=== PATIENT | male | born 1965 | race Caucasian/White ===

== ENCOUNTER 2017-09-18 10:58 | Inpatient (IN) | payer BC ==
[2017-09-18] MEDS ORDERED: Zolpidem 5 MG Tab PO PRN (12:10)
[2017-09-18] MEDS ORDERED: Sodium Chloride 0.9% 10 ML Syringe FLUSH PRN (12:10)
[2017-09-18] MEDS ORDERED: Albuterol 0.083% 2.5 MG/3 ML Neb Soln NEB PRN (12:10)
[2017-09-18] MEDS ORDERED: Albuterol/Ipratropium 3.0-0.5 MG/3 ML Neb Soln NEB PRN (12:10)
[2017-09-18] MEDS ORDERED: Lactated Ringers 1,000 ML IV SCH (12:15)
[2017-09-18] MEDS ORDERED: Benzonatate 100 MG Cap PO PRN (12:24)
[2017-09-18] MEDS ORDERED: traMADol 50 MG Tab PO PRN (12:26)
--- NOTE | 2017-09-18 12:27 | PCM.HP ---
H&P History of Present Illness - General Date of Service: 09/18/17 Admit Problem/Dx: Admission Diagnosis/Problem Admission Diagnosis/Problem Pneumonia Source of Information: Provider - History of Present Illness Initial Comments - Free Text/Narative: Pleasant 52-year-old male cutting by his presented to his clinic and [facility] after having a 2 week course of intermittent right sided back pain cough and congestion. At that time influenza swabs are negative treated symptomatically outpatient. Over the course of the last couple days he's been getting worse with breathing bouts of fevers and chills, inability to keep up with oral intake due to cough congestion sputum production shortness of breath dyspnea with exertion, weakness, increased thoracic back pain on the right, intermittent lightheadedness and overall debility malaise. He was seen in the clinic outpatient agrees found to have a respiratory rate 28, and oxygen saturations on room air 88-90, pallor with otherwise normal systolic blood pressure and a pulse in the 70s to 80s. Chest x-ray and outline facility showed a dense right middle lower lobe pneumonia. Unable to perform labs in the outlying facility. He was transferred via private vehicle as a direct admit to the hospital. He denies any onset of rash, no headache vision change epistaxis sore throat swollen lymph nodes hemoptysis chest pain at rest but does get some back pain on deep inspiration palpitations near syncope falls trauma to the chest neck or back area no tinnitus or otalgia no difficulty chewing or swallowing no sudden onset of extremity swelling numbness or tingling he does have nausea but has had no vomiting, denies abdominal epigastric or flank pain denies any dysuria hematuria malodorous urine, denies diarrhea melena unusual constipation, rash or swollen joints. Otherwise a healthy male with only seasonal allergies for which he takes an oral antihistamine. 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 He is a nonsmoker, no alcohol use or drug use. He has no known exposures, has not traveled outside the [place] or any recent part of the [place] in the last 90 days. He has no history of immunocompromise. He do not receive an influenza vaccination this season. He has not received any prescribed medications or vaccinations over the last 30 days. He has not had any hospitalizations the last 90 days nor in the last year. He's been taking [id number] Tylenol intermittently as well as some cough suppressant. denies any cardiopulmonary history, such as COPD/asthma/CAD/CHF. He denies any history of clotting disorder or family history. Denies any sudden cardiac arrest and family members at an early age. Denies any gastrointestinal history versus peptic ulcer disease, IBS IVD GI bleed. Generalized Pain Score (Numeric/FACES): 4 - Related Data Allergies/Adverse Reactions: Allergies Allergy/AdvReac Type Severity Reaction Status Date / Time azithromycin [From Zithromax] Allergy Itching Verified 09/18/17 11:21 cephalexin Allergy Rash Verified 09/18/17 11:21 codeine Allergy Cannot Verified 09/18/17 11:21 Remember Home Medications: Home Meds Benzonatate [Tessalon Perle] 200 mg PO Q8H PRN 09/18/17 [History] Cetirizine [ZyrTEC] 10 mg PO DAILY 09/18/17 [History] Montelukast [Singulair] 10 mg PO BEDTIME 09/18/17 [History] Past Medical History HEENT History: Reports: Allergic Rhinitis Cardiovascular History: Reports: None Respiratory History: Reports: None Gastrointestinal History: Reports: None Genitourinary History: Reports: None Musculoskeletal History: Reports: None Neurological History: Reports: None Psychiatric History: Reports: None Endocrine/Metabolic History: Reports: None Hematologic History: Reports: None Immunologic History: Reports: None Oncologic (Cancer) History: Reports: None Dermatologic History: Reports: None - Infectious Disease History Infectious Disease History: Reports: None - Past Surgical History HEENT Surgical History: Reports: Naso-Sinus Surgery, Other (See Below) Other HEENT Surgeries/Procedures: wisdom teeth removed Musculoskeletal Surgical History: Reports: Arthroscopic Procedure, Shoulder Surgery, Other (See Below) Other Musculoskeletal Surgeries/Procedures:: spur on shoulder Social & Family History - Tobacco Use Smoking Status *Q: Never Smoker - Caffeine Use Caffeine Use: Reports: None - Recreational Drug Use Recreational Drug Use: No - Living Situation & Occupation Living situation: Reports: Occupation: Employed (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 . Has grown children. Independent of all ADLs. Drives. No disabilities. Uses no assistive device.) H&P Review of Systems - Review of Systems: Review Of Systems: ROS reveals no pertinent complaints other than HPI. Exam - Exam Exam: See Below - Vital Signs Vital Signs: Last Vital Signs Temp 98.8 F 09/18/17 11:07 Pulse 87 09/18/17 11:07 Resp 17 09/18/17 11:07 BP 123/80 09/18/17 11:07 Pulse Ox 96 09/18/17 11:07 Weight: 76.158 kg - Exam Quality Assessment: Supplemental Oxygen (2L), Other (Thin ill-appearing male lying flat on bed. He appears pale. at the bedside. Does not shown any signs of respiratory distress. Pleasant and conversant and speaking in complete sentences.) General: Alert, Oriented, Cooperative, Lethargic HEENT: Hearing Intact, Nares Patent, Normal Nasal Septum, Posterior Pharynx Clear, Pupils Equal, TMs Clear. No: Mucosa Moist & [place], Rhinitis, Scleral Icterus Neck: Supple, Trachea Midline, +2 Carotid Pulse wo Bruit, Full Range of Motion. No: Lymphadenopathy, JVD, Thyromegaly Lungs: Decreased Breath Sounds (right mid anterior and lower posterior. no rhochi or rales. minimal wheezes expiratory central anterior bronchi bilat. breathing unlabored. left slightly decreased lower lobe.) Cardiovascular: Regular Rate, Regular Rhythm, Normal S1, Normal S2, Gallop/S3, Gallop/S4. No: Rubs GI/Abdominal Exam: Normal Bowel Sounds, Soft, Non-Tender, No Organomegaly, Other (No flank tenderness, no palpable bladder distention). No: Tender (Male) Exam: No Hernia. No: Inguinal Lymphadenopathy Rectal (Males) Exam: Deferred Back Exam: Normal Inspection, Other (Scattered acne noninflamed. Back is diaphoretic and very warm to touch. No focal trauma crepitus. Equal chest wall expansion bilaterally. No retractions.). No: Paraspinal Tenderness, Vertebral Tenderness Extremities: Normal Inspection, Non-Tender, No Pedal Edema, Slow Capillary Refill. No: Jaqui's Sign Skin: Intact, Moist. No: Wound Neurological: Cranial Nerves Intact, Strength Equal Bilateral, Normal Speech, Normal Tone, Sensation Intact. No: Focal Deficit Neuro Extensive - Mental Status: Oriented x3, Normal Cognition Psychiatric: Alert, Normal Affect, Normal Mood - Patient Data Lab Results Last 24 hrs: Laboratory Tests 09/18/17 09/18/17 09/18/17 Range/Units 12:40 12:40 12:40 WBC 8.3 (4.5-12.0) X10-3/uL RBC 4.96 (4.30-5.75) x10(6)uL Hgb 14.5 (11.5-15.5) g/dL Hct 43.3 (30.0-51.3) % MCV 87.2 (80-96) fL MCH 29.2 (27.7-33.6) pg MCHC 33.5 (32.2-35.4) g/dL RDW 12.7 (11.5-15.5) % Plt Count 204 (125-369) X10(3)uL MPV 8.8 (7.4-10.4) fL Neut % (Auto) 84.0 H (46-82) % Lymph % (Auto) 7.6 L (13-37) % Hayes % (Auto) 8.4 (4-12) % Eos % (Auto) 0 L (1.0-5.0) % Baso % (Auto) 0 (0-2) % Neut # (Auto) 7.0 (1.6-8.3) # Lymph # (Auto) 0.6 (0.6-5.0) # Hayes # (Auto) 0.7 (0.0-1.3) # Eos # (Auto) 0.0 (0.0-0.8) # Baso # (Auto) 0.0 (0.0-0.2) # Sodium 135 (135-145) mmol/L Potassium 3.6 (3.5-5.3) mmol/L Chloride 100 (100-110) mmol/L Carbon Dioxide 24 (21-32) mmol/L BUN 19 H (7-18) mg/dL Creatinine 1.2 (0.70-1.30) mg/dL Est Cr Clr Drug Dosing 67.32 mL/min Estimated GFR (MDRD) > 60 (>60) BUN/Creatinine Ratio 15.8 (9-20) Glucose 140 H (80-116) mg/dL Calcium 8.4 L (8.6-10.2) mg/dL Total Bilirubin 0.3 (0.1-1.3) mg/dL AST 36 H (5-25) IU/L ALT 39 H (12-36) U/L Alkaline Phosphatase 75 (56-112) IU/L C-Reactive Protein 32.6 H* (0.5-0.9) mg/dL Total Protein 6.8 (6.0-8.0) g/dL Albumin 2.7 L (3.5-5.2) g/dL Globulin 4.1 g/dL Albumin/Globulin Ratio 0.7 Result Diagrams: 09/19/17 06:20 09/18/17 12:40 Matias Results Last 24 hrs: Microbiology 09/18/17 13:15 Influenza Type A Antigen Screen - Final Nasal, Unspecified NEGATIVE INFLUENZA A VIRUS AG Influenza Type B Antigen Screen - Final NEGATIVE INFLUENZA B VIRUS AG *Q Meaningful Use (ADM) - VTE *Q VTE Criteria *Q: - Stroke *Q Stroke Criteria *Q: - AMI *Q AMI Criteria *Q: - Problem List (1) CAP (community acquired pneumonia) SNOMED Code(s): 446853170 ICD Code: J18.9 - PNEUMONIA, UNSPECIFIED ORGANISM Status: Acute Priority : High Current Visit: Yes Qualifiers: Laterality: right Lung location: lower lobe of lung Qualified Code(s): J18.1 - Lobar pneumonia, unspecified organism (2) Respiratory distress, acute SNOMED Code(s): 590118801 ICD Code: R06.03 - ACUTE RESPIRATORY DISTRESS Status: Acute Priority: High Current Visit: Yes (3) Dehydration, moderate SNOMED Code(s): 9616300561076 ICD Code: E86.0 - DEHYDRATION Status: Acute Current Visit: Yes (4) Back pain due to inflammatory process SNOMED Code(s): 636945487 ICD Code: M54.89 - OTHER DORSALGIA Status: Acute Current Visit: Yes (5) Complaint of debility and malaise SNOMED Code(s): 781325748 ICD Code: R53.81 - OTHER MALAISE Status: Acute Current Visit: Yes (6) Seasonal allergic rhinitis due to pollen SNOMED Code(s): 48329280 ICD Code: J30.1 - ALLERGIC RHINITIS DUE TO POLLEN Status: Acute Current Visit: Yes Problem List Initiated/Reviewed/Updated: Yes Orders Last 24hrs: Active Orders 24 hr Category Date Time Status Patient Status [ADT] Routine ADT 09/18/17 12:10 Ordered Bedrest Bathroom Privileges [RC] ASDIRECTED Care 09/18/17 12:10 Ordered Communication Order [RC] ASDIRECTED Care 09/18/17 12:10 Ordered Intake and Output [RC] Q4H Care 09/18/17 12:16 Ordered Notify Provider Vital Signs [RC] ASDIRECTED Care 09/18/17 12:17 Ordered Oxygen Therapy [RC] ASDIRECTED Care 09/18/17 12:10 Ordered Oxygen Therapy [RC] PRN Care 09/18/17 12:10 Ordered Pneumonia Education [RC] DAILY Care 09/18/17 12:10 Ordered Pulse Oximetry [RC] CONTINUOUS Care 09/18/17 12:16 Ordered RT Incentive Spirometry [RC] Q2HWA Care 09/18/17 12:10 Ordered VTE/DVT Education [RC] Per Unit Routine Care 09/18/17 12:10 Ordered Vital Signs [RC] Q4H Care 09/18/17 12:10 Ordered Respiratory Care Assess and Treatment [CONS] Routine Cons 09/18/17 12:10 Ordered Regular Diet [DIET] Diet 09/18/17 Breakfast Ordered C-REACTIVE PROTEIN [CHEM] Routine Lab 09/18/17 12:10 Ordered CBC WITH AUTO DIFF [HEME] DAILY Lab 09/18/17 12:15 Ordered CBC WITH AUTO DIFF [HEME] DAILY Lab 09/19/17 12:15 Ordered CBC WITH AUTO DIFF [HEME] DAILY Lab 09/20/17 12:15 Ordered COMPREHENSIVE METABOLIC PN,CMP [CHEM] Routine Lab 09/18/17 12:10 Ordered CULTURE BLOOD [BC] Urgent Lab 09/18/17 12:12 Ordered CULTURE BLOOD [BC] Urgent Lab 09/18/17 12:12 Ordered CULTURE SPUTUM + SMEAR [RM] Urgent Lab 09/18/17 12:10 Ordered INFLUENZA A+B AG SCREEN [RM] Urgent Lab 09/18/17 12:10 Ordered Acetaminophen [Tylenol] Med 09/18/17 12:15 Ordered 1,000 mg PO Q6H Albuterol [Proventil Neb Soln] Med 09/18/17 12:10 Ordered 2.5 mg NEB Q4H PRN Albuterol/Ipratropium [DuoNeb 3.0-0.5 MG/3 ML] Med 09/18/17 12:10 Ordered 3 ml NEB Q4H PRN Benzonatate [Tessalon Perles] Med 09/18/17 12:24 Ordered 200 mg PO Q8H PRN Cetirizine [ZyrTEC] Med 09/18/17 12:30 Ordered 10 mg PO DAILY Enoxaparin [Lovenox] Med 09/18/17 12:15 Ordered 40 mg SUBCUT Q24H Ketorolac [Toradol] Med 09/18/17 12:15 Ordered 30 mg IVPUSH Q6H Lactated Ringers @ 125 MLS/HR(1000ml) Med 09/18/17 13:30 Ordered Lactated Ringers [Ringers, Lactated] 1,000 ml IV ASDIRECTED Lactated Ringers [Ringers, Lactated] 1,000 ml Med 09/18/17 12:15 Ordered IV .BOLUS Levofloxacin/Dextrose 5%-Water [Levaquin in D5W 750 MG/ Med 09/18/17 12:15 Ordered 150 ML] 750 mg Premix Bag 1 bag IV Q24H Montelukast [Singulair] Med 09/18/17 21:00 Ordered 10 mg PO BEDTIME Sodium Chloride 0.9% [Saline Flush] Med 09/18/17 12:10 Ordered 10 ml FLUSH ASDIRECTED PRN Zolpidem [Ambien] Med 09/18/17 12:10 Ordered 5 mg PO BEDTIME PRN traMADol [Ultram] Med 09/18/17 12:26 Ordered 50 mg PO Q6H PRN Blood Culture x2 Reflex Set [OM.PC] Urgent Oth 09/18/17 12:10 Ordered Give supplemental Oxygen PRN [COMM] Routine Oth 09/18/17 12:10 Ordered Peripheral IV Insertion Adult [OM.PC] Routine Oth 09/18/17 12:10 Ordered Resuscitation Status Routine Resus Stat 09/18/17 12:10 Ordered Medication Orders Acetaminophen (Tylenol) 1,000 mg PO Q6H SIN Albuterol (Proventil Neb Soln) 2.5 mg NEB Q4H PRN PRN Reason: Shortness Of Breath/wheezing Albuterol/Ipratropium (Duoneb 3.0-0.5 Mg/3 Ml) 3 ml NEB Q4H PRN PRN Reason: Shortness Of Breath/wheezing Benzonatate (Tessalon Perles) 200 mg PO Q8H PRN PRN Reason: Cough Cetirizine HCl (Zyrtec) 10 mg PO DAILY SIN Enoxaparin Sodium (Lovenox) 40 mg SUBCUT Q24H SIN Lactated Ringer's (Ringers, Lactated) 1,000 mls @ 125 mls/hr IV ASDIRECTED SIN Lactated Ringer's (Ringers, Lactated) 1,000 mls @ 999 mls/hr IV .BOLUS SIN Levofloxacin/Dextrose 750 mg/ (Premix) 150 mls @ 150 mls/hr IV Q24H SIN Ketorolac Tromethamine (Toradol) 30 mg IVPUSH Q6H [facility] Stop: 09/19/17 18:16 Montelukast Sodium (Singulair) 10 mg PO BEDTIME SIN Sodium Chloride (Saline Flush) 10 ml FLUSH ASDIRECTED PRN PRN Reason: Keep Vein Open Zolpidem Tartrate (Ambien) 5 mg PO BEDTIME PRN PRN Reason: Sleep Assessment/Plan Comment:: We are going to hydrate him fluid bolus of lactated Ringer's and then run at 125 an hour also encouraged oral fluid intake. Will get a baseline chemistry and hematology panel as well as a CRP. Repeat influenza swabs Aziz can be negative on acute presentation. Blood cultures sputum cultures ordered we'll start Levaquin IV. Good respiratory therapy cares for DuoNeb, incentive spirometry cough and deep breathing. I'll keep him on oxygen at 2 L for now to decrease the workload of the heart and lungs. Continuous O2 sats at this moment. I have him on bedrest with bathroom privileges and a regular diet as tolerated. Will schedule Tylenol and ketorolac, and intermittent tramadol when necessary for the next day due to intermittent fevers and for analgesia secondary to inflammatory pleuritis. GI DVT prophylaxis be administered as appropriate. Continue his home allergy medications. We'll do vitals every 4. Repeat chest x-ray in the morning after hydration. Strict ins and outs. Allergies taken into consideration. Anticipate 48-72 hours inpatient status pending his response the above. Total time: 60 minutes with greater than 50% spent [id number] with the patient and conducting examination, reviewing with them diagnosis, plan of care, prognosis as well as reviewing CODE STATUS in detail for which he does wish to be full code should he need respiratory intervention such as intubation or cardiac intervention such as resuscitation. This is documented in chart.
[2017-09-18] MEDS: Ketorolac 30 MG/ML SDV IVPUSH SCH ×2 (13:01→17:38)
[2017-09-18] MEDS: Levofloxacin/Dextrose 5%-Water 750 MG in Premix Bag 1 BAG IV SCH (13:02)
[2017-09-18] MEDS: Cetirizine 10 MG Tab PO SCH (13:03)
[2017-09-18] MEDS: Acetaminophen 500 MG Tab PO SCH ×2 (13:03→17:38)
[2017-09-18] MEDS: Enoxaparin 40 MG/0.4 ML Syringe SUBCUT SCH (13:57)
[2017-09-18] MEDS: Lactated Ringers 1,000 ML IV SCH ×2 (15:04→23:09)
[2017-09-18] MEDS: Montelukast 10 MG Tab PO SCH (20:09)
[2017-09-19] MEDS: Ketorolac 30 MG/ML SDV IVPUSH SCH ×4 (00:13→18:25)
[2017-09-19] MEDS: Acetaminophen 500 MG Tab PO SCH ×3 (00:14→12:46)
[2017-09-19] MEDS: Lactated Ringers 1,000 ML IV SCH ×2 (07:12→16:20)
[2017-09-19] MEDS: Cetirizine 10 MG Tab PO SCH (08:31)
--- NOTE | 2017-09-19 10:20 | CR ---
INDICATION: Pneumonia follow-up after hydration. CHEST: PA and lateral views of the chest 09/19/2017 were compared with 2017 from the clinic and revealed slightly increased consolidation in the area of infiltration in the anterior basilar segment of the right upper lobe, with minimal pleuritis suggested at the minor fissure. Findings are compatible with slightly progressive pneumonia and pleuritis in that area. No other evidence of an acute process was identified. The heart and mediastinum were unremarkable. A mild dextroconvex scoliosis of the lower thoracic spine is noted with moderate hypertrophic degenerative changes at the mid to lower thoracic spine. There may be some minimal calcification at the arch of the aorta additionally. Slightly flattened diaphragm leaves and prominent AP diameter with minimal hyperaeration suggests COPD additionally. Blunting of the right posterior sulcus is compatible with pleuritis also - small pleural effusion. This is increased compared with the previous examination. IMPRESSION: 1. Progressive pneumonia and pleuritis right upper lobe, anterior basilar segment. 2. Probable COPD. 3. Scoliosis and DJD lower thoracic spine. 4. 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 MTDD
--- NOTE | 2017-09-19 12:37 | PCM.PN ---
- General Info Date of Service: 09/19/17 Subjective Update: Sitting upright in his chair this morning. Tells me he is feeling a little bit better. Still gets dyspneic and short of breath with activities such as getting up and going to the bathroom. He no longer appears pelvic continues to appear ill. He denies any nausea headache vision change otalgia tinnitus nasal congestion sore throat difficulty swallowing globus sensation wheezing or increase back pain. He is using his incentive spirometer which does elicit a cough reflex. Pleuritic pain is controlled with scheduled Tylenol and ketorolac. He spent afebrile however again he has been getting oral analgesics and IV anti-inflammatories. This could be masking. He was able to tolerate a meal. His urine output has improved, still slightly dark and cloudy. He did receive bolus IV fluids and is continuing to get IV fluids. He has had a bowel movement. He denies any muscle cramps Reiger's or fasciculations. Is not having any palpitations or near syncopal episodes on standing. He has no flank pain or dysuria. No hematuria. No sudden joint swelling or tenderness. No sudden onset lower extremity edema calf pain or tenderness. - Review of Systems Systems Review Comment:: Pertinent positives and negatives relevant that please refer to subjective - Patient Data Vitals - Most Recent: Last Vital Signs Temp 98.3 F 09/19/17 07:41 Pulse 56 L 09/19/17 10:27 Resp 16 09/19/17 07:41 BP 135/85 09/19/17 07:41 Pulse Ox 97 09/19/17 10:27 Weight - Most Recent: 76.158 kg I&O - Last 24 Hours: Intake & Output 09/18/17 09/19/17 09/19/17 22:59 06:59 14:59 Intake Total 2757 1312 120 Output Total 1000 325 325 Balance 1757 987 -205 Lab Results Last 24 Hours: Laboratory Results - last 24 hr 09/18/17 09/18/17 09/18/17 Range/Units 12:40 12:40 12:40 WBC 8.3 (4.5-12.0) X10-3/uL RBC 4.96 (4.30-5.75) x10(6)uL Hgb 14.5 (11.5-15.5) g/dL Hct 43.3 (30.0-51.3) % MCV 87.2 (80-96) fL MCH 29.2 (27.7-33.6) pg MCHC 33.5 (32.2-35.4) g/dL RDW 12.7 (11.5-15.5) % Plt Count 204 (125-369) X10(3)uL MPV 8.8 (7.4-10.4) fL Neut % (Auto) 84.0 H (46-82) % Lymph % (Auto) 7.6 L (13-37) % P[place] % (Auto) 8.4 (4-12) % Eos % (Auto) 0 L (1.0-5.0) % Baso % (Auto) 0 (0-2) % Neut # (Auto) 7.0 (1.6-8.3) # Lymph # (Auto) 0.6 (0.6-5.0) # Pinal # (Auto) 0.7 (0.0-1.3) # Eos # (Auto) 0.0 (0.0-0.8) # Baso # (Auto) 0.0 (0.0-0.2) # Sodium 135 (135-145) mmol/L Potassium 3.6 (3.5-5.3) mmol/L Chloride 100 (100-110) mmol/L Carbon Dioxide 24 (21-32) mmol/L BUN 19 H (7-18) mg/dL Creatinine 1.2 (0.70-1.30) mg/dL Est Cr Clr Drug Dosing 67.32 mL/min Estimated GFR (MDRD) > 60 (>60) BUN/Creatinine Ratio 15.8 (9-20) Glucose 140 H (80-116) mg/dL Calcium 8.4 L (8.6-10.2) mg/dL Total Bilirubin 0.3 (0.1-1.3) mg/dL AST 36 H (5-25) IU/L ALT 39 H (12-36) U/L Alkaline Phosphatase 75 (56-112) IU/L C-Reactive Protein 32.6 H* (0.5-0.9) mg/dL Total Protein 6.8 (6.0-8.0) g/dL Albumin 2.7 L (3.5-5.2) g/dL Globulin 4.1 g/dL Albumin/Globulin Ratio 0.7 09/19/17 Range/Units 06:20 WBC 6.9 (4.5-12.0) X10-3/uL RBC 4.90 (4.30-5.75) x10(6)uL Hgb 14.3 (11.5-15.5) g/dL Hct 42.8 (30.0-51.3) % MCV 87.3 (80-96) fL MCH 29.1 (27.7-33.6) pg MCHC 33.4 (32.2-35.4) g/dL RDW 13.1 (11.5-15.5) % Plt Count 207 (125-369) X10(3)uL MPV 8.1 (7.4-10.4) fL Neut % (Auto) 78.7 (46-82) % Lymph % (Auto) 11.2 L (13-37) % P[place] % (Auto) 9.5 (4-12) % Eos % (Auto) 0 L (1.0-5.0) % Baso % (Auto) 0 (0-2) % Neut # (Auto) 5.4 (1.6-8.3) # Lymph # (Auto) 0.8 (0.6-5.0) # Pinal # (Auto) 0.7 (0.0-1.3) # Eos # (Auto) 0.0 (0.0-0.8) # Baso # (Auto) 0.0 (0.0-0.2) # Sodium (135-145) mmol/L Potassium (3.5-5.3) mmol/L Chloride (100-110) mmol/L Carbon Dioxide (21-32) mmol/L BUN (7-18) mg/dL Creatinine (0.70-1.30) mg/dL Est Cr Clr Drug Dosing mL/min Estimated GFR (MDRD) (>60) BUN/Creatinine Ratio (9-20) Glucose (80-116) mg/dL Calcium (8.6-10.2) mg/dL Total Bilirubin (0.1-1.3) mg/dL AST (5-25) IU/L ALT (12-36) U/L Alkaline Phosphatase (56-112) IU/L C-Reactive Protein (0.5-0.9) mg/dL Total Protein (6.0-8.0) g/dL Albumin (3.5-5.2) g/dL Globulin g/dL Albumin/Globulin Ratio Matias Results Last 24 Hours: Microbiology 09/18/17 13:15 Influenza Type A Antigen Screen - Final Nasal, Unspecified NEGATIVE INFLUENZA A VIRUS AG Influenza Type B Antigen Screen - Final NEGATIVE INFLUENZA B VIRUS AG Med Orders - Current: Current Medications Acetaminophen (Tylenol Extra Strength) 1,000 mg PO Q6H [facility] Last Admin: 09/19/17 06:26 Dose: 1,000 mg Albuterol (Proventil Neb Soln) 2.5 mg NEB Q4H PRN PRN Reason: Shortness Of Breath/wheezing Albuterol/Ipratropium (Duoneb 3.0-0.5 Mg/3 Ml) 3 ml NEB Q4H PRN PRN Reason: Shortness Of Breath/wheezing Benzonatate (Tessalon Perles) 200 mg PO Q8H PRN PRN Reason: Cough Cetirizine HCl (Zyrtec) 10 mg PO DAILY [facility] Last Admin: 09/19/17 08:31 Dose: 10 mg Enoxaparin Sodium (Lovenox) 40 mg SUBCUT Q24H [facility] Last Admin: 09/18/17 13:57 Dose: 40 mg Lactated Ringer's (Ringers, Lactated) 1,000 mls @ 125 mls/hr IV ASDIRECTED [facility] Last Admin: 09/19/17 07:12 Dose: 125 mls/hr Lactated Ringer's (Ringers, Lactated) 1,000 mls @ 999 mls/hr IV .BOLUS [facility] Last Admin: 09/18/17 12:55 Dose: 999 mls/hr Levofloxacin/Dextrose 750 mg/ (Premix) 150 mls @ 150 mls/hr IV Q24H [facility] Last Admin: 09/18/17 13:02 Dose: 150 mls/hr Ketorolac Tromethamine (Toradol) 30 mg IVPUSH Q6H [facility] Stop: 09/19/17 18:16 Last Admin: 09/19/17 06:25 Dose: 30 mg Montelukast Sodium (Singulair) 10 mg PO BEDTIME [facility] Last Admin: 09/18/17 20:09 Dose: 10 mg Sodium Chloride (Saline Flush) 10 ml FLUSH ASDIRECTED PRN PRN Reason: Keep Vein Open Tramadol HCl (Ultram) 50 mg PO Q6H PRN PRN Reason: Breakthrough Pain Zolpidem Tartrate (Ambien) 5 mg PO BEDTIME PRN PRN Reason: Sleep - Exam Physical Findings Comments:: Admission weight : 76.158 kg - Exam General: Alert, Oriented, Cooperative, Lethargic-but improved. HEENT: Mucosa Moist & [place], NO Scleral Icterus Neck: Supple, No: Lymphadenopathy Lungs: Decreased Breath Sounds (right mid anterior and lower posterior. now slight coarse inpiratory rales along right anterior chest. improved aeration to the bases bilaterally. Cardiovascular: Regular Rate, Regular Rhythm, Normal S1, Normal S2, Gallop/S3, Gallop/S4. No: Rubs GI/Abdominal Exam: Normal Bowel Sounds, Soft, Non-Tender Back Exam: Normal Inspection, Other (Scattered acne noninflamed. Back is now dry cool. No focal trauma crepitus. Equal chest wall expansion bilaterally. No retractions.). No: Paraspinal Tenderness, Vertebral Tenderness Extremities: Normal Inspection, Non-Tender, No Pedal Edema, Normal Capillary Refill. No: Jaqui's Sign Skin: Intact, dry No: Wound Neurological: Cranial Nerves Intact, Strength Equal Bilateral, Normal Speech, Normal Tone, Sensation Intact. No: Focal Deficit Neuro Extensive - Mental Status: Oriented x3, Normal Cognition Psychiatric: Alert, Normal Affect, Normal Mood - Problem List & Annotations (1) CAP (community acquired pneumonia) SNOMED Code(s): 581868907 Code(s): J18.9 - PNEUMONIA, UNSPECIFIED ORGANISM Status: Acute Priority: High Current Visit: Yes Qualifiers: Laterality: right Lung location: upper lobe of lung Qualified Code(s): J18.1 - Lobar pneumonia, unspecified organism (2) Respiratory distress, acute SNOMED Code(s): 875911354 Code(s): R06.03 - ACUTE RESPIRATORY DISTRESS Status: Acute Priority: High Current Visit: Yes (3) Dehydration, moderate SNOMED Code(s): 7989655204762 Code(s): E86.0 - DEHYDRATION Status: Acute Current Visit: Yes (4) Back pain due to inflammatory process SNOMED Code(s): 337238724 Code(s): M54.89 - OTHER DORSALGIA Status: Acute Current Visit: Yes (5) Complaint of debility and malaise SNOMED Code(s): 236265815 Code(s): R53.81 - OTHER MALAISE Status: Acute Current Visit: Yes (6) Seasonal allergic rhinitis due to pollen SNOMED Code(s): 29949903 Code(s): J30.1 - ALLERGIC RHINITIS DUE TO POLLEN Status: Acute Current Visit: Yes (7) Full code status SNOMED Code(s): 118685281 Code(s): Z78.9 - OTHER SPECIFIED HEALTH STATUS Status: Acute Current Visit: Yes Onset Date: 09/18/17 - Problem List Review Problem List Initiated/Reviewed/Updated: Yes - My Orders Last 24 Hours: My Active Orders 09/18/17 12:10 Patient Status [ADT] Routine Bedrest Bathroom Privileges [RC] ASDIRECTED Communication Order [RC] 00,08,16 Oxygen Therapy [RC] PRN RT Incentive Spirometry [RC] Q2HWA VTE/DVT Education [RC] Per Unit Routine Vital Signs [RC] Q4H Respiratory Care Assess and Treatment [CONS] Routine Albuterol [Proventil Neb Soln] 2.5 mg NEB Q4H PRN Albuterol/Ipratropium [DuoNeb 3.0-0.5 MG/3 ML] 3 ml NEB Q4H PRN Sodium Chloride 0.9% [Saline Flush] 10 ml FLUSH ASDIRECTED PRN Zolpidem [Ambien] 5 mg PO BEDTIME PRN Blood Culture x2 Reflex Set [OM.PC] Urgent Give supplemental Oxygen PRN [COMM] Routine Peripheral IV Insertion Adult [OM.PC] Routine Resuscitation Status Routine 09/18/17 12:15 Ketorolac [Toradol] 30 mg IVPUSH Q6H Lactated Ringers [Ringers, Lactated] 1,000 ml IV .BOLUS Levofloxacin/Dextrose 5%-Water [Levaquin in D5W 750 MG/150 ML] 750 mg Premix Bag 1 bag IV Q24H 09/18/17 12:16 Intake and Output [RC] 06,10,14,18,22,02 Pulse Oximetry [RC] CONTINUOUS 09/18/17 12:17 Notify Provider Vital Signs [RC] ASDIRECTED 09/18/17 12:24 Benzonatate [Tessalon Perles] 200 mg PO Q8H PRN 09/18/17 12:26 traMADol [Ultram] 50 mg PO Q6H PRN 09/18/17 12:30 Acetaminophen [Tylenol Extra Strength] 1,000 mg PO Q6H Cetirizine [ZyrTEC] 10 mg PO DAILY 09/18/17 12:40 CULTURE BLOOD [BC] Urgent 09/18/17 12:45 CULTURE BLOOD [BC] Urgent 09/18/17 13:30 Lactated Ringers [Ringers, Lactated] 1,000 ml IV ASDIRECTED 09/18/17 14:00 Enoxaparin [Lovenox] 40 mg SUBCUT Q24H 09/18/17 21:00 Montelukast [Singulair] 10 mg PO BEDTIME 09/19/17 12:26 CULTURE SPUTUM + SMEAR [RM] Urgent 09/20/17 12:15 CBC WITH AUTO DIFF [HEME] DAILY - Assessment Assessment:: Please see above - Plan Plan:: Continue with oral and IV hydration. CRP was elevated yesterday otherwise normal hemogram and chemistry panel. Repeat chest x-ray keep a better image of the right lower portion of the upper lobe consolidation. There is question of possible tiny right pleural effusion. Influenza swabs are negative. Blood cultures so far have not grown anything. He is doing well with respiratory cares which we will continue. Keep him on oxygen at this time and then will wean off later in the evening. I'm going to discontinue the scheduled Tylenol so that we can monitor for any fevers that may be cyclical. He'll get his last dose of ketorolac and a couple hours and will switch this to when necessary Motrin for pleuritic pain. He also has tramadol as a when necessary order as well. Will increase his activity as tolerated. Anticipate additional 24-48 hours inpatient pending his response to above.
[2017-09-19] MEDS: Levofloxacin/Dextrose 5%-Water 750 MG in Premix Bag 1 BAG IV SCH (12:46)
[2017-09-19] MEDS ORDERED: Acetaminophen 500 MG Tab PO PRN (13:30)
[2017-09-19] MEDS: Enoxaparin 40 MG/0.4 ML Syringe SUBCUT SCH (15:43)
[2017-09-19] MEDS: Montelukast 10 MG Tab PO SCH (20:30)
[2017-09-19] MEDS ORDERED: Ibuprofen 800 MG Tab PO PRN (23:00)
[2017-09-20] MEDS: Lactated Ringers 1,000 ML IV SCH (00:20)
[2017-09-20] MEDS: Cetirizine 10 MG Tab PO SCH (08:50)
--- NOTE | 2017-09-20 09:06 | PCM.PN ---
- General Info Date of Service: 09/20/17 Subjective Update: Patient feels much better today. Elvis Says he has minimal cough shortness of breath is improved he has normal fever chills. He would like to go home today. - Review of Systems Genitourinary: Reports: No Symptoms Musculoskeletal: Reports: No Symptoms - Patient Data Vitals - Most Recent: Last Vital Signs Temp 99.8 F 09/20/17 04:00 Pulse 68 09/20/17 06:00 Resp 18 09/20/17 04:00 BP 139/90 09/20/17 04:00 Pulse Ox 94 L 09/20/17 04:00 Weight - Most Recent: 76.158 kg I&O - Last 24 Hours: Intake & Output 09/19/17 09/20/17 09/20/17 22:59 06:59 14:59 Intake Total 1757 1576 Output Total 1000 900 Balance 757 676 Lab Results Last 24 Hours: Laboratory Results - last 24 hr 09/20/17 09/20/17 09/20/17 Range/Units 05:55 05:55 05:55 WBC 5.7 (4.5-12.0) X10-3/uL RBC 4.63 (4.30-5.75) x10(6)uL Hgb 13.9 (11.5-15.5) g/dL Hct 41.2 (30.0-51.3) % MCV 88.9 (80-96) fL MCH 30.1 (27.7-33.6) pg MCHC 33.8 (32.2-35.4) g/dL RDW 13.0 (11.5-15.5) % Plt Count 235 (125-369) X10(3)uL MPV 8.0 (7.4-10.4) fL Add Manual Diff Yes Neutrophils % (Manual) 71 (46-82) % Lymphocytes % (Manual) 21 (13-37) % Monocytes % (Manual) 8 (4-12) % Sodium 141 (135-145) mmol/L Potassium 3.8 (3.5-5.3) mmol/L Chloride 102 (100-110) mmol/L Carbon Dioxide 30 (21-32) mmol/L BUN 13 (7-18) mg/dL Creatinine 1.0 (0.70-1.30) mg/dL Est Cr Clr Drug Dosing 80.79 mL/min Estimated GFR (MDRD) > 60 (>60) BUN/Creatinine Ratio 13.0 (9-20) Glucose 107 (80-116) mg/dL Calcium 8.4 L (8.6-10.2) mg/dL C-Reactive Protein 23.3 H* (0.5-0.9) mg/dL Matias Results Last 24 Hours: Microbiology 09/19/17 12:20 Gram Stain - Final Sputum - Expectorated Sputum Culture - Preliminary Normal Trisha 09/18/17 12:45 Aerobic Blood Culture - Preliminary Blood - Venous - Lab Draw NO GROWTH AFTER 1 DAY Anaerobic Blood Culture - Preliminary NO GROWTH AFTER 1 DAY 09/18/17 12:40 Aerobic Blood Culture - Preliminary Blood - Venous NO GROWTH AFTER 1 DAY Anaerobic Blood Culture - Preliminary NO GROWTH AFTER 1 DAY Med Orders - Current: Current Medications Acetaminophen (Tylenol Extra Strength) 1,000 mg PO Q6H PRN PRN Reason: Fever >100.4F or pain Albuterol (Proventil Neb Soln) 2.5 mg NEB Q4H PRN PRN Reason: Shortness Of Breath/wheezing Albuterol/Ipratropium (Duoneb 3.0-0.5 Mg/3 Ml) 3 ml NEB Q4H PRN PRN Reason: Shortness Of Breath/wheezing Benzonatate (Tessalon Perles) 200 mg PO Q8H PRN PRN Reason: Cough Cetirizine HCl (Zyrtec) 10 mg PO DAILY [facility] Last Admin: 09/20/17 08:50 Dose: 10 mg Enoxaparin Sodium (Lovenox) 40 mg SUBCUT Q24H [facility] Last Admin: 09/19/17 15:43 Dose: 40 mg Lactated Ringer's (Ringers, Lactated) 1,000 mls @ 125 mls/hr IV ASDIRECTED [facility] Last Admin: 09/20/17 00:20 Dose: 125 mls/hr Lactated Ringer's (Ringers, Lactated) 1,000 mls @ 999 mls/hr IV .BOLUS [facility] Last Admin: 09/18/17 12:55 Dose: 999 mls/hr Levofloxacin/Dextrose 750 mg/ (Premix) 150 mls @ 150 mls/hr IV Q24H [facility] Last Admin: 02/22/18 12:46 Dose: 150 mls/hr Ibuprofen (Motrin) 800 mg PO Q8H PRN PRN Reason: Pain Montelukast Sodium (Singulair) 10 mg PO BEDTIME [facility] Last Admin: 09/19/17 20:30 Dose: 10 mg Sodium Chloride (Saline Flush) 10 ml FLUSH ASDIRECTED PRN PRN Reason: Keep Vein Open Tramadol HCl (Ultram) 50 mg PO Q6H PRN PRN Reason: Breakthrough Pain Last Admin: 09/20/17 02:09 Dose: 50 mg Zolpidem Tartrate (Ambien) 5 mg PO BEDTIME PRN PRN Reason: Sleep Discontinued Medications Acetaminophen (Tylenol Extra Strength) 1,000 mg PO Q6H [facility] Last Admin: 09/19/17 12:46 Dose: 1,000 mg Ketorolac Tromethamine (Toradol) 30 mg IVPUSH Q6H [facility] Stop: 09/19/17 18:16 Last Admin: 09/19/17 18:25 Dose: 30 mg - Exam General: Alert, Oriented HEENT: Pupils Equal, Pupils Reactive, EOMI, Mucous Membr. Moist/[place]pps Neck: Supple Lungs: Clear to Auscultation, Normal Respiratory Effort Cardiovascular: Regular Rate, Regular Rhythm GI/Abdominal Exam: Normal Bowel Sounds, Soft, Non-Tender, No Organomegaly, No Distention, No Abnormal Bruit, No Mass, Pelvis Stable (Male) Exam: No Hernia, Normal Inspection, Normal Prostate, Circumcised Back Exam: Normal Inspection, Full Range of Motion Extremities: Normal Inspection, Normal Range of Motion, Non-Tender, No Pedal Edema, Normal Capillary Refill Skin: Warm, Dry, Intact Wound/Incisions: Healing Well Neurological: No New Focal Deficit Psy/Mental Status: Alert, Normal Affect, Normal Mood - Problem List & Annotations (1) CAP (community acquired pneumonia) SNOMED Code(s): 269540028 Code(s): J18.9 - PNEUMONIA, UNSPECIFIED ORGANISM Status: Acute Priority: High Current Visit: Yes Qualifiers: Laterality: right Lung location: upper lobe of lung Qualified Code(s): J18.1 - Lobar pneumonia, unspecified organism - Problem List Review Problem List Initiated/Reviewed/Updated: Yes - My Orders Last 24 Hours: My Active Orders 09/20/17 09:03 Chest w Cont [CT] Routine - Plan Plan:: I will obtain a CT of the chest is x-ray traumatic and this is to make sure there is no mass. I will plan to discharge him today on Levaquin 750 mg daily for 1 week after completion of the CT scan. I would like him to be seen within 3 -5 days of discharge by his PCP.
[2017-09-20] MEDS ORDERED: Iopamidol 755 Mg/ML 75 ML Bottle IV ONE (09:13)
--- NOTE | 2017-09-20 11:40 | CT ---
INDICATION: Community acquired pneumonia. CT CHEST WITH CONTRAST: Spiral 2.5 mm axial sections were obtained through the chest with 64 mL Isovue 370 at 3 mL/second with sagittal and coronal reconstruction 09/20/2017. Comparison was 09/19/2017 chest x-ray, two views. Total exam DLP = 403.54 mGy-cm. There is heavily consolidating infiltration in the basilar segments of the right upper lobe, compatible with pneumonia. No definite bronchial obstruction was identified - no central mass is seen. The infiltrate extends into the upper middle lung field anteriorly. It extends posteriorly to the major fissure. There is an enlarged lymph node, which is just above the rae on the right, likely on the basis of infection and measuring approximately 23 mm. This enlarged lymph node may actually represent several lymph nodes matted together. No mediastinal masses were seen. LAD coronary artery calcification is noted - the heart is not enlarged, however. Low density lesion is noted on axial image #106 posteriorly in the right lobe of the liver, which may represent a cyst, measuring approximately 11 mm. The liver was otherwise unremarkable. No gallstones were demonstrated. Portions of the kidneys appeared normal. Adrenals were unremarkable. The spleen and pancreas were unremarkable. Common bile duct was not enlarged. There is some probable scarring in the lingula at the lung base. Very minimal scarring in the left lower lobe medially at the lung base with no other definite active infiltrate or effusion identified. IMPRESSION: 1. Significantly consolidating pneumonia of the right upper lobe. No definite obstructive process of the bronchi identified. Follow-up to clearing recommended. 2. Minimal parenchymal scarring in the lung, lingula and left lower lobe. 3. Coronary artery calcification. 4. Small low density lesion posteriorly in the right lobe of the liver, likely of benign origin. Followup could be obtained for confirmation, since no old CT exams are available at this time. MTDD
--- NOTE | 2017-09-21 03:36 | DISCH ---
DISCHARGE DATE: 09/20/2017 REASON FOR ADMISSION: Community-acquired pneumonia. DISCHARGE DIAGNOSIS: Community-acquired pneumonia. BRIEF HISTORY: This is a 52-year-old male who has had upper respiratory symptoms along with some lower respiratory tract symptoms like cough, shortness of breath, and was seen in the clinic on Saturday, found to have pneumonia. He was admitted for IV antibiotics. He got 3 doses of Levaquin IV and some IV fluids. He feels better, improved and was off oxygen by day 3. He was discharged today on Levaquin 750 mg daily for 1 week. Follow up, he had a CT scan of the chest that was done the day of discharge, the report is pending. I advised the patient to be seen in the clinic in [place] in 3-5 days for followup to get the results. I spent more than 35 minutes in the discharge of the patient. /[id number] MAUREEN/VALENTINO
== END 2017-09-20 12:19 | disposition home or self-care (01) | DRG 139 ==
LOC: FB.MS 11:21 → OBSVTOIN 12:10
PROVIDERS: ADMIT Family Medicine; ATTEND Family Medicine
DX: J18.9 Pneumonia, unspecified organism (principal); E86.0 Dehydration; M54.89 Other dorsalgia; R53.81 Other malaise; R06.03 Acute respiratory distress; J30.1 Allergic rhinitis due to pollen; Z88.1 Allergy status to other antibiotic agents; Z88.5 Allergy status to narcotic agent
CPT/HCPCS: 36415; 71046; 71260; 80048; 80053; 85025; 86140; 87040; 87070; 87205; 87804; 94150; A9270-GY; J1650; J1885; J1956; J7120; Q9967